=== PATIENT | male | born 1990 | race American Indian/Alaskan Native ===

== ENCOUNTER 2017-02-12 17:47 | Emergency (ER) | payer OTHER ==
[2017-02-12 18:37] LABS: Basophils % (Auto) 0.7 % (0.0-1.8); Eosinophils % (Auto) 0.2 % (0.0-4.3); Hematocrit 43.4 % (35.5-45.6); Hemoglobin 14.3 gm/dl (11.8-15.2); Mean Corpuscular HGB Conc 33 % (32-34); Mean Corpuscular Hemoglobin 30 pg (28-32); Mean Corpuscular Volume 92 fl (84-94); Platelet Count 175 K/mm3 (140-440); Red Blood Count 4.72 M/mm3 (3.65-5.03); Red Cell Distribution Width 13.3 % (13.2-15.2); White Blood Count 16.1 K/mm3 (4.5-11.0)
--- NOTE | 2017-02-12 18:37 | Emergency Department Report ---
Entered by DEBBIE FAROOQ, acting as scribe for LUZ ELENA SARGENT NP. Chief Complaint: Psych Stated Complaint: MH EVAL -MENTAL CRISIS Time Seen by Provider: 02/12/17 18:25 - HPI History of Present Illness: 26 year old male who is non toxic appearing, non ill appearing, in no acute distress presents with mother for evaluation of acute behavioral changes for 2- 3 days. Per mother, patient has abusing illicit drugs and EtOH, displaying acute aggressive behavior and responding to internal stimuli. When questioned with mother out of the room, patient endorses illicit drug use of unknown powder substance and EtOH use this morning but denies HI/SI/AH/VH. Patient states he was would like to receive treatment. He has no additional complaints. - ROS Review of Systems: Mother reports substance abuse, acute aggressive behavior, patient responding to internal stimuli. Patient reports substance abuse. Patient denies SI/HI/AH/VH. - Exam Vital Signs: Vital Signs 02/12/17 17:58 Temperature 98 F Pulse Rate 89 Respiratory 18 Rate Blood Pressure 135/91 O2 Sat by Pulse 100 Oximetry Physical Exam: Constitutional: Non toxic appearing, NAD. Psych: Patient is cooperative. Endorses substance abuse. Denies suicidal ideation and homicidal ideation. Denies auditory and visual hallucinations but appears to be responding to internal stimuli. MSE screening note: Focused history and physical exam performed. Due to findings the following was ordered: BMP, CBC, ANANDA, Drug Panel, UA theatrical agent and steam table worker notified of patient. Patient is going to room 13 in the ED. ED Disposition for MSE Condition: Stable This documentation as recorded by the scribe,DEBBIE FAROOQ,accurately reflects the service I personally performed and the decisions made by ROSETTA lyn MARTIN, MARGIE.
[2017-02-12 18:50] LABS: Urine Drugs of Abuse Note Disclamer
[2017-02-12 19:01] LABS: Bilirubin,Urine NEG (Negative); Blood,Urine NEG (Negative); Ketones,Urine TR mg/dL (Negative); Leukocyte Esterase,Urine NEG (Negative); Mucus,Urine 2+ /HPF; Nitrite,Urine NEG (Negative); Urobilinogen,Urine < 2.0 mg/dL (<2.0); WBC,Urine < 1.0 /HPF (0.0-6.0)
[2017-02-12 19:18] LABS: Anion Gap 20 mmol/L; BUN/Creatinine Ratio 11.66; Blood Urea Nitrogen 14 mg/dL (9-20); Carbon Dioxide 26 mmol/L (22-30); Chloride 103.3 mmol/L (98-107); Glucose 92 mg/dL (75-100); Potassium 3.9 mmol/L (3.6-5.0); Sodium 145 mmol/L (137-145)
[2017-02-12] MEDS ORDERED: XANAX PO ONE (20:28)
--- NOTE | 2017-02-12 20:33 | Emergency Department Report ---
HPI - General Chief Complaint: Psych Time Seen by Provider: 02/12/17 18:54 - HPI HPI: This is a 26-year-old -Russian male who presents to the emergency department with his mother and sister with the need for a mental health evaluation. The patient has been displaying very odd behavior recently. He will have some alternating violent behavior. Sometimes the patient will be staring into space. Family has noticed the patient talking to himself or to other entities that no rales can see. They took him to a crisis center today and was told to bring him here for further evaluation. He does have a diagnosis of ADHD and he has some history of drug abuse in the past. The patient himself is nonverbal. He will sometimes make eye contact and other times he is just staring off into space. ED Past Medical Hx - Past Medical History Hx Psychiatric Treatment: Yes (ADHD) Additional medical history: drug abuse - Social History Smoking Status: Current Every Day Smoker Substance Use Type: Alcohol, Cocaine, Other - Medications Home Medications: Home Medications Medication Instructions Recorded Confirmed Last Taken Type No Known Home Medications [No 02/12/17 02/12/17 Unknown History Reported Home Medications] ED Review of Systems ROS: Stated complaint: MH EVAL -MENTAL CRISIS Other details as noted in HPI Comment: Unobtainable due to pts medical conditions Psychiatric: auditory hallucinations Physical Exam - Physical Exam Vital Signs: Vital Signs 02/12/17 02/12/17 17:58 18:50 Temperature 98 F Pulse Rate 89 Respiratory 18 18 Rate Blood Pressure 135/91 O2 Sat by Pulse 100 100 Oximetry Physical Exam: GENERAL: The patient is well-developed well-nourished. HEENT: Normocephalic. Atraumatic. Extraocular motions are intact. Patient has moist mucous membranes. Pupils equal reactive to light bilaterally. NECK: Supple. Trachea is midline. CHEST/LUNGS: Clear to auscultation. There is no respiratory distress noted. HEART/CARDIOVASCULAR: Regular. There is no tachycardia. There is no gallop rub or murmur. ABDOMEN: Abdomen is soft, nontender. Patient has normal bowel sounds. There is no abdominal distention. SKIN: There is no rash. There is no edema. There is no diaphoresis. NEURO: The patient is awake but is not cooperative and remains nonverbal. The patient has no focal neurologic deficits. Normal gait. MUSCULOSKELETAL: There is no tenderness or deformity. There is no limitation range of motion. There is no evidence of acute injury. PSYCH: Patient seems slightly agitated and is constant and going from sitting to standing. Sometimes he will make eye contact and other times he appears to be staring off at nothing. ED Course Vital Signs 02/12/17 02/12/17 17:58 18:50 Temperature 98 F Pulse Rate 89 Respiratory 18 18 Rate Blood Pressure 135/91 O2 Sat by Pulse 100 100 Oximetry ED Medical Decision Making - Lab Data Result diagrams: 02/12/17 18:24 02/12/17 18:24 - Medical Decision Making 26-year-old male presents brought in by his family with concern for psychosis. He has some violent outbursts and sometimes aggressive towards them. He has been staring off into space and other times he will be able to make contact. He has been seen talking to himself or talking to things that are not there. Mom says that he has been trying to urinate in multiple different places, out in public, without any concern for exposing himself or without any concern for trespassing. In the emergency department the patient does display some odd behavior including the fact that he remains nonverbal and that he cannot maintain eye contact. He does appear slightly agitated as he is continuously going from sitting to standing and then back again. Patient's labs are mostly unremarkable. Urine drug screen positive only for marijuana. He has a leukocytosis but I do not see any source of infection. Vital signs stable throughout his ED course. Patient appears medically clear for psychiatric placement. He has been made a 1013 secondary to his psychosis and most likely the inability to care for himself. - Differential Diagnosis schizophrenia, schizoaffective, bipolar, substance abuse Critical Care Time: No Critical care attestation.: If time is entered above; I have spent that time in minutes in the direct care of this critically ill patient, excluding procedure time. ED Disposition Clinical Impression: Psychosis Qualifiers: Psychosis type: unspecified psychosis type Qualified Code(s): F29 - Unspecified psychosis not due to a substance or known physiological condition Disposition: DC/TX PSY HOSP/PSY UNIT Is pt being admited?: No Condition: Stable Time of Disposition: 21:56
[2017-02-13] MEDS ORDERED: TRIPLE ANTIBIOTIC TP ONE ×2 (01:29→05:50)
[2017-02-13] MEDS ORDERED: ATIVAN IM ONE ×2 (07:00→16:35)
[2017-02-13] MEDS ORDERED: HALDOL IM ONE ×2 (07:00→16:35)
--- NOTE | 2017-02-13 14:34 | Consultation ---
History of Present Illness - Reason for Consult Consult date: 02/13/17 Reason for consult: psychiatric evaluation - Chief Complaint Chief complaint: "no verbal response" 26 year old black male seen in the ER for psychiatric evaluation. He was medicated with haldol and ativan prior to interview and his only response was to look at this author and roll over. Collateral from staff indicates he eloped and was running nude. The record indicates recent bizarre behaviors and staring episodes. Unable to obtain additional information from patient. UDS: positive for marijuana. neg alcohol. Medications and Allergies Allergies Allergy/AdvReac Type Severity Reaction Status Date / Time No Known Allergies Allergy Unverified 10/04/13 04:29 Home Medications Medication Instructions Recorded Confirmed Last Taken Type No Known Home Medications [No 02/12/17 02/12/17 Unknown History Reported Home Medications] Past psychiatric history - Past Medical History Past Medical History: other (unknown) - past Psychiatric treatment and history psychiatric treatment history: unknown - Social History Social history: other (history of drug use) Mental Status Exam - Vital signs Last Vital Signs Temp 98.4 F 02/13/17 08:44 Pulse 76 02/13/17 08:44 Resp 14 02/13/17 08:44 BP 117/60 02/13/17 08:44 Pulse Ox 99 02/13/17 08:44 - Exam Narrative exam: Opened eyes in response to his name. Unable to assess mood, affect, thought content or thought process, perceptions, memory, sleep, appetite, or attitude Results Result Diagrams: 02/12/17 18:24 02/12/17 18:24 Abnormal lab results 02/12/17 Range/Units 18:24 WBC 16.1 H (4.5-11.0) K/mm3 Ray # 1.1 H (0.0-0.8) K/mm3 Seg Neutrophils % 72.3 H (40.0-70.0) % Seg Neutrophils # 11.7 H (1.8-7.7) K/mm3 All other labs normal. Assessment and Plan Assessment and plan: Impression: Psychosis unspecified. Plan to gain additional information once patient is alert UDS positive for marijuana and wbcs 16.1 Recommendation: Until further information is available about medications or past meds, start thorazine 25mg hs for psychosis. Give with cogentin 0.5mg hs for EPS prevention. 1013 and transfer to inpatient psychiatric facility for stabilization
[2017-02-13] MEDS ORDERED: BENADRYL IM ONE (16:35)
[2017-02-13] MEDS ORDERED: THORAZINE PO SCH (22:00)
[2017-02-13] MEDS: COGENTIN PO SCH (22:43)
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
[2017-02-14 22:23] VITALS: BP 110/72
[2017-02-14] MEDS: COGENTIN PO SCH (23:25)
--- NOTE | 2017-02-15 12:10 | Progress Note ---
Subjective - Reason for Consult Consult date: 02/15/17 Reason for consult: psychiatric follow up - Chief Complaint Chief complaint: "When am I going home?" 26 year old black male seen in the ER for psychiatric follow up. Today patient is calm and asked questions about when he could go home. When he was presented with the facts surrounding this admission, he stated "All is well." No agitation or aggressive behavior observed. Mental Status Exam - Vital signs Last Vital Signs Temp 98.3 F 02/14/17 22:14 Pulse 64 02/14/17 22:14 Resp 20 02/14/17 22:14 BP 110/72 02/14/17 22:14 Pulse Ox 100 02/14/17 22:14 - Exam Narrative exam: Appearance: calm, cooperative Behavior: poor eye contact Speech: low rate and tone Mood: "All is well" Affect: indifferent Thought Process: circumstantial Thought Content: denies SI/HI's and AVH's Motor Activity: no abnormal movement observed Cognition: a/o x 3 Insight: limited Judgment: limited Assessment and Plan Impression: Psychosis Record indicates recent substance use, with increase in use He is alert and asking questions about where he is going. When provided with answers, his response is "All is well." DD: Schizophrenia, Schizoaffective DO, R/O Bipolar Recommendation/Plan: Continue 1013 with transport pending to [facility]. Continue Zyprexa 5 mg PO HS for psychosis and continue Cogentin 0.5 mg PO HS for EPS prevention.
== END 2017-02-15 20:36 ==
LOC: ED 17:47 → EEVIPCON 17:47 → ED 02-15 20:36
DX: F29 Unspecified psychosis not due to a substance or known physiological condition (principal); F90.9 Attention-deficit hyperactivity disorder, unspecified type; F14.10 Cocaine abuse, uncomplicated; F17.200 Nicotine dependence, unspecified, uncomplicated
CPT/HCPCS: 36415; 80048; 80307; 81001; 85025; 96372; 99285; G0480; J1200; J1630; J2060; 80320; A6250; Q0161